=== PATIENT | female | born 1935 | race Hispanic/Latino ===

== ENCOUNTER 2018-10-11 08:07 | Emergency (ER) | payer MEDICARE ==
[2018-10-11 08:08] VITALS: BMI 29.1
[2018-10-11 08:18] VITALS: BP 128/69; RESP 18; TEMP 98.2
--- NOTE | 2018-10-11 08:36 | ED PDOC ---
Arrival/HPI - General Chief Complaint: Back Pain Time Seen by Provider: 10/11/18 08:08 Historian: Patient - History of Present Illness Narrative History of Present Illness (Text): 10/11/18 08:33 83 year old female, whose past medical history includes arthritis and hypertension, presents to the emergency department complaining of left lower back pain, since Monday. Patient states she has been experiencing lower back pain and when ambulating to gnosticism on Monday the pain suddenly became excruciating, radiating to her left hip and down her left leg. Patient states the pain only radiates down her leg with ambulation. She has been trying to treat the pain with Tylenol with no improvement, prompting her visit to the emergency department for further evaluation. Patient denies any fall or trauma to the area, fevers, chills, headache, dizziness, chest pain, shortness of breath, dyspnea on exertion, cough, abdominal pain, nausea, vomiting, diarrhea, neck pain, or any other complaint. PMD: Dr. Montes Time/Duration: < week Symptom Course: Unchanged Activities at Onset: Light Context: Walking Past Medical History - Provider Review Nursing Documentation Reviewed: Yes - Infectious Disease Hx of Infectious Diseases: None - Tetanus Immunization Tetanus Immunization: Unknown - Cardiac Hx Hypertension: Yes - Pulmonary Hx Respiratory Disorders: No - Neurological Hx Neurological Disorder: No - HEENT Hx HEENT Disorder: No Hx Cataracts: Yes (BILATERAL CATARACT SURGERY 1993) - Renal Hx Renal Disorder: No - Endocrine/Metabolic Hx Endocrine Disorders: No - Hematological/Oncological Hx Blood Disorders: No - Integumentary Hx Dermatological Disorder: No - Musculoskeletal/Rheumatological Hx Arthritis: Yes Hx Falls: Yes Hx Unsteady Gait: Yes Other/Comment: H/O OF RIGHT WRIST FRACTURE FROM FALL,38-13 POST ORIF-RIGHT TRIMALEOLLAR FX. - Gastrointestinal Hx Gastrointestinal Disorders: No - Genitourinary/Gynecological Hx Genitourinary Disorders: No - Psychiatric Hx Psychophysiologic Disorder: No Hx Substance Use: No - Surgical History Hx Musculoskeletal Surgery: Yes Hx Orthopedic Surgery: Yes - Anesthesia Hx Anesthesia: Yes Hx Anesthesia Reactions: No Hx Malignant Hyperthermia: No - Suicidal Assessment Feels Threatened In Home Enviroment: No Family/Social History - Physician Review Nursing Documentation Reviewed: Yes Family/Social History: No Known Family HX Smoking Status: Former Smoker Hx Alcohol Use: No Hx Substance Use: No Hx Substance Use Treatment: No Allergies/Home Meds Allergies/Adverse Reactions: Allergies Penicillins Allergy (Verified 10/11/18 08:14) ANAPHYLAXIS Home Medications: Home Meds Medication Instructions Recorded Confirmed Amlodipine Besylate 10 mg PO DAILY 01/18/13 05/24/15 Aspirin [Ecotrin] 81 mg PO DAILY 01/18/13 05/24/15 Review of Systems - Physician Review All systems were reviewed & negative as marked: Yes - Review of Systems Constitutional: absent: Fevers Respiratory: absent: SOB, Cough Cardiovascular: absent: Chest Pain Gastrointestinal: absent: Abdominal Pain, Diarrhea, Nausea, Vomiting Musculoskeletal: Back Pain (radiates to left hip and down her leg). absent: Nec k Pain Neurological: absent: Headache, Dizziness Physical Exam Vital Signs Reviewed: Yes Vital Signs Temp Pulse Resp BP Pulse Ox 10/11/18 08:17 98.2 F 81 18 128/69 94 L Temperature: Afebrile Blood Pressure: Normal Pulse: Regular Respiratory Rate: Normal Appearance: Positive for: Well-Appearing, Non-Toxic, Comfortable Pain Distress: None Mental Status: Positive for: Alert and Oriented X 3 - Systems Exam Head: Present: Atraumatic, Normocephalic Pupils: Present: PERRL Extroacular Muscles: Present: EOMI Conjunctiva: Present: Normal Mouth: Present: Moist Mucous Membranes Neck: Present: Normal Range of Motion Respiratory/Chest: Present: Clear to Auscultation, Good Air Exchange. No: Respiratory Distress, Accessory Muscle Use Cardiovascular: Present: Regular Rate and Rhythm, Normal S1, S2. No: Murmurs Abdomen: No: Tenderness, Distention, Peritoneal Signs Back: Present: Normal Inspection Upper Extremity: Present: Normal Inspection. No: Cyanosis, Edema Lower Extremity: Present: Normal Inspection. No: Edema Neurological: Present: GCS=15, CN II-XII Intact, Speech Normal Skin: Present: Warm, Dry, Normal Color. No: Rashes Psychiatric: Present: Alert, Oriented x 3, Normal Insight, Normal Concentration Medical Decision Making ED Course and Treatment: 10/11/18 08:34 Impression: 83 year old female who presents to the emergency department complaining of left lower back pain. Plan: -- Lumbar Spine CT w/o Contrast -- Reassess and disposition Prior Visits: Notes and results from previous visits were reviewed. Progress Notes: 10/11/18 10:[address] w/o Contrast reviewed, shows: IMPRESSION: L3-4: Asymmetric disc bulge to the right. No significant stenosis L4-5: There is severe spinal stenosis with disc bulging and ligamentum flavum hypertrophy. L5-S1: Disc bulge without stenosis 10/11/18 10:14 Instructed patient to follow up with PMD or return to the ER if symptoms worsen. Patient agrees with plan. Patient stable for discharge. All questions answered. - Scribe Statement The provider has reviewed the documentation as recorded by the Amaris Valverde Provider Scribe Attestation: All medical record entries made by the Scribe were at my direction and personally dictated by me. I have reviewed the chart and agree that the record accurately reflects my personal performance of the history, physical exam, medical decision making, and the department course for this patient. I have also personally directed, reviewed, and agree with the discharge instructions and disposition. Disposition/Present on Arrival - Present on Arrival Any Indicators Present on Arrival: No History of DVT/PE: No History of Uncontrolled Diabetes: No Urinary Catheter: No History of Decub. Ulcer: No History Surgical Site Infection Following: None - Disposition Have Diagnosis and Disposition been Completed?: Yes Diagnosis: Lower back pain Disposition: HOSPITALIZED Disposition Time: 10:00 Condition: GOOD Discharge Instructions (ExitCare): Low Back Pain (DC) Additional Instructions: STONEY MALIK, thank you for letting us take care of you today. The emergency medical care you received today was directed at your acute symptoms. If you were prescribed any medication, please fill it and take as directed. It may take several days for your symptoms to resolve. Return to the Emergency Department if your symptoms worsen, do not improve, or if you have any other problems. Please contact your doctor or call one of the physicians/clinics you have been referred to that are listed on the Patient Visit Information form that is included in your discharge packet. Bring any paperwork you were given at discharge with you along with any medications you are taking to your follow up visit. Our treatment cannot replace ongoing medical care by a primary care provider outside of the emergency department. Thank you for allowing the [facility] team to be part of your care today. Follow up with your primary care doctor in 2-3 days for re-evaluation and further management. Prescriptions: Cyclobenzaprine [Cyclobenzaprine HCl] 5 mg PO Q8 PRN #20 tab PRN Reason: Muscle Spasm Ibuprofen [Motrin] 600 mg PO Q6 PRN #20 tab PRN Reason: Pain, Moderate (4-7) Referrals: Gary Montes MD [Family Provider] - Follow up with primary Forms: [employer] (Lao)
--- NOTE | 2018-10-11 09:58 | CT ---
Date of service: 10/11/2018 PROCEDURE: CT Lumbar Spine without contrast HISTORY: s/p trip, h/o left sciatic pain, r/o compresson fx COMPARISON: None available. TECHNIQUE: Axial computed tomography images were obtained of the lumbar spine without the use of intravenous contrast. Coronal and sagittal reformatted images were created and reviewed. Radiation dose: Total exam DLP = 624.72 mGy-cm. This CT exam was performed using one or more of the following dose reduction techniques: Automated exposure control, adjustment of the mA and/or kV according to patient size, and/or use of iterative reconstruction technique. FINDINGS: VERTEBRAE: There is bony demineralization but no evidence of compression fracture. DISCS/SPINAL CANAL/NEURAL FORAMINA: L1-2: Unremarkable. L2-3: Unremarkable. L3-4: Asymmetric disc bulge to the right. No significant stenosis L4-5: There is severe spinal stenosis with disc bulging and ligamentum flavum hypertrophy. L5-S1: Disc bulge without stenosis PARASPINAL SOFT TISSUES: Unremarkable. OTHER FINDINGS: None. IMPRESSION: L3-4: Asymmetric disc bulge to the right. No significant stenosis L4-5: There is severe spinal stenosis with disc bulging and ligamentum flavum hypertrophy. L5-S1: Disc bulge without stenosis
[2018-10-11 10:36] VITALS: PULSE 85; O2SAT 99
== END 2018-10-11 10:35 | disposition home or self-care (01) ==
LOC: ED 08:07
DX: M54.5 Low back pain (principal); I10 Essential (primary) hypertension; Z87.891 Personal history of nicotine dependence